=== PATIENT | female | born 1940 | race Caucasian/White ===

== ENCOUNTER 2021-09-18 12:55 | Observation (INO) | payer MEDICARE ==
[2021-09-18 14:07] LABS: #Eosinphils 0.4 10x3/uL (0.0-0.5); #Neutrophils 4.9 10x3/uL (1.5-8.4); %Basophils 0.5 % (0.0-2.0); %Eosinophils 4.4 % (0.0-6.0); %Lymphocytes 21.5 % (18.0-47.0); %Monocytes 12.8 % (0.0-10.0); %Neutrophils 60.6 % (40.0-75.0); Hemoglobin 9.9 g/dL (12.0-15.5); Mean Corpuscular HGB CONC 33.6 g/dL (32.0-36.0); Mean Corpuscular Volume 92.5 fl (81.6-98.3); Mean Platelet Volume 13.4 fl (7.4-10.4); Platelet Count 142 10x3/uL (150-450); RBC Distribution Width 13.4 % (11.5-14.5); Red Blood Cell (RBC) Count 3.19 10x6/uL (3.90-5.03); White Blood Cell (WBC) Count 8.2 10x3/uL (3.5-10.5)
[2021-09-18 14:21] LABS: ALT (SGPT) 17 U/L (8-55); AST (SGOT) 25 U/L (5-34); Albumin 4.1 g/dL (3.4-4.8); Alkaline Phosphatase 57 U/L (40-110); Anion Gap 14 mmol/L (10-20); BUN (Urea Nitrogen) 44 mg/dL (9.8-20.1); Bilirubin, Total 0.4 mg/dL (0.2-1.2); Calc. Creatinine Clearance 0 mL/min (70-130); Calcium 9.5 mg/dL (7.8-10.44); Carbon Dioxide 29 mmol/L (23-31); Chloride 101 mmol/L (98-107); Estimated GFR 22; Globulin 2.6 g/dL (2.4-3.5); Glucose 135 mg/dL (83-110); Potassium 4.9 mmol/L (3.5-5.1); Protein, Total 6.7 g/dL (5.8-8.1); Sodium 139 mmol/L (136-145)
[2021-09-18] MEDS ORDERED: Iopamidol 370 76% 100 ML VIAL ONE ×2 (14:23)
[2021-09-18 15:00] LABS: PTT 23.8 sec (22.0-33.0); Prothrombin Time 9.9 sec (9.5-12.1)
[2021-09-18] MEDS ORDERED: HYDROcodone/Acetaminophen 5/325 mg Tablet PO PRN (15:37)
[2021-09-18] MEDS ORDERED: Acetaminophen 325 MG TAB PO PRN (15:37)
[2021-09-18] MEDS ORDERED: hydrALAZINE 20 MG/ML VIAL SLOW IVP PRN (15:37)
[2021-09-18] MEDS ORDERED: Aspirin Chewable 81 MG TAB ONE (15:38)
[2021-09-18] MEDS ORDERED: Sodium Chloride 0.9% 500 ML IV SCH (15:45)
[2021-09-18] MEDS ORDERED: Dextrose 5% in Water 1,000 ML IV PRN (15:59)
[2021-09-18] MEDS ORDERED: Dextrose 50% Abboject 50 ML SYRINGE SLOW IVP PRN (15:59)
[2021-09-18 20:15] VITALS: BMI 22.8
[2021-09-18] MEDS: Atorvastatin Calcium 40 MG TAB PO SCH (20:37)
[2021-09-19 04:57] LABS: #Basophils 0.1 10x3/uL (0.0-0.2); #Eosinphils 0.4 10x3/uL (0.0-0.5); #Monocytes 1.1 10x3/uL (0.0-1.1); #Neutrophils 5.4 10x3/uL (1.5-8.4); %Basophils 0.6 % (0.0-2.0); %Eosinophils 4.9 % (0.0-6.0); %Lymphocytes 23.1 % (18.0-47.0); %Neutrophils 59.2 % (40.0-75.0); Hemoglobin 10.9 g/dL (12.0-15.5); Mean Corpuscular HGB CONC 33.3 g/dL (32.0-36.0); Mean Corpuscular Hemoglobin 30.4 pg (27.0-33.0); Mean Corpuscular Volume 91.1 fl (81.6-98.3); Platelet Count 141 10x3/uL (150-450); RBC Distribution Width 13.6 % (11.5-14.5); Red Blood Cell (RBC) Count 3.59 10x6/uL (3.90-5.03)
[2021-09-19 05:16] LABS: ALT (SGPT) 16 U/L (8-55); AST (SGOT) 24 U/L (5-34); Alkaline Phosphatase 58 U/L (40-110); Anion Gap 13 mmol/L (10-20); BUN (Urea Nitrogen) 43 mg/dL (9.8-20.1); Bilirubin, Total 0.4 mg/dL (0.2-1.2); Calc. Creatinine Clearance 23 mL/min (70-130); Calcium 9.9 mg/dL (7.8-10.44); Carbon Dioxide 31 mmol/L (23-31); Cardiac Risk 4.5 (Less than 4.5); Chloride 105 mmol/L (98-107); Cholesterol 156 mg/dl (< 200 Desired); Estimated GFR 31; Glucose 97 mg/dL (83-110); HDL Cholesterol 35 mg/dL (>60 Neg Risk); LDL Cholesterol, Calculated 99 mg/dL; Potassium 4.8 mmol/L (3.5-5.1); Sodium 144 mmol/L (136-145); Triglycerides 112 mg/dL (Less than 150)
[2021-09-19] MEDS: Aspirin 81 mg Enteric Coated Tablet PO SCH (08:50)
[2021-09-19] MEDS: Enoxaparin Sodium 30 MG/0.3 ML SYRINGE SC SCH (08:51)
[2021-09-19] MEDS ORDERED: Diazepam 10 MG/2 ML SYRINGE IVP PRN (09:27)
[2021-09-19] MEDS: HumaLOG 300 UNITS/3 ML VIAL SC PRN ×2 (12:31→17:19)
[2021-09-19 12:39] LABS: Hemoglobin A1c 6.5 % (4.0-6.0)
[2021-09-19] MEDS ORDERED: HYDROcodone/Acetaminophen 5/325 mg Tablet PO PRN (16:08)
[2021-09-19] MEDS ORDERED: ALPRAZolam 0.25 MG TAB PO PRN (16:08)
[2021-09-19] MEDS ORDERED: Albuterol Sulfate 2.5 mg/3 ml Neb NEB PRN (18:30)
[2021-09-19] MEDS: Mometasone/Formoterol 200/5 60 PUFF INH SCH (19:35)
[2021-09-19] MEDS: Benzonatate 100 MG CAP PO SCH (21:28)
[2021-09-19] MEDS: Sacubitril 49 MG/Valsartan 51 MG TABLET PO SCH (21:29)
[2021-09-19] MEDS: Carvedilol 6.25 MG TAB PO SCH (21:29)
[2021-09-19] MEDS: Atorvastatin Calcium 40 MG TAB PO SCH (21:29)
[2021-09-19] MEDS: Pregabalin 75 MG CAP PO SCH (21:41)
[2021-09-20] MEDS: Mometasone/Formoterol 200/5 60 PUFF INH SCH (07:46)
[2021-09-20] MEDS: Enoxaparin Sodium 30 MG/0.3 ML SYRINGE SC SCH (08:57)
[2021-09-20] MEDS: Benzonatate 100 MG CAP PO SCH (08:58)
[2021-09-20] MEDS: Pregabalin 75 MG CAP PO SCH (08:58)
[2021-09-20] MEDS: Sacubitril 49 MG/Valsartan 51 MG TABLET PO SCH (08:58)
[2021-09-20] MEDS: Carvedilol 6.25 MG TAB PO SCH (08:58)
[2021-09-20] MEDS: Aspirin 81 mg Enteric Coated Tablet PO SCH (08:58)
[2021-09-20] MEDS ORDERED: Montelukast Sodium 10 mg Tablet PO SCH (09:00)
[2021-09-20] MEDS ORDERED: Ipratropium Bromide 0.06% Nasal Inhaler 15ml EA NARE SCH (09:00)
[2021-09-20] MEDS ORDERED: Bumetanide 1 MG TAB PO SCH (09:00)
[2021-09-20] MEDS: HumaLOG 300 UNITS/3 ML VIAL SC PRN (12:23)
[2021-09-20 12:33] VITALS: TEMP 97.3
[2021-09-20 13:58] VITALS: BP 118/73
== END 2021-09-20 15:20 ==
LOC: CSHERS 12:55 → CSHTELE 18:53
PROVIDERS: ADMIT Family Medicine; ATTEND Family Medicine
DX: R29.810 Facial weakness (principal); I65.21 Occlusion and stenosis of right carotid artery; R53.1 Weakness; J44.9 Chronic obstructive pulmonary disease, unspecified; I13.0 Hypertensive heart and chronic kidney disease with heart failure and stage 1 through stage 4 chronic kidney disease, or unspecified chronic kidney disease; I50.9 Heart failure, unspecified; E11.22 Type 2 diabetes mellitus with diabetic chronic kidney disease; N18.30 Chronic kidney disease, stage 3 unspecified; N17.9 Acute kidney failure, unspecified; Z20.822 Contact with and (suspected) exposure to COVID-19; E78.5 Hyperlipidemia, unspecified; Z79.51 Long term (current) use of inhaled steroids; Z79.82 Long term (current) use of aspirin; Z79.899 Other long term (current) drug therapy; Z79.84 Long term (current) use of oral hypoglycemic drugs; Z95.0 Presence of cardiac pacemaker; Z87.891 Personal history of nicotine dependence; Z88.0 Allergy status to penicillin
CPT/HCPCS: 0042T; 70496; 70498; 70551; 71045; 72100; 80053; 80061; 82962 ×3; 83036; 83605; 84484; 85025; 85610; 85730; 93005; 93306; 94640 ×4; 94760; 97110; 97116 ×2; 97535; 99285; U0003; U0005; 36415; 36416; 51798; 84443; 96372; 96374; G0378; J1650; J1815; J3360; J7050; Q9967